=== PATIENT | male | born 1990 | race Caucasian/White ===

== ENCOUNTER 2018-11-21 23:50 | Emergency (ER) | payer OTHER ==
[~2018-11-21] VITALS: Ht 172.7 cm; Wt 124.7 kg
[2018-11-21 23:50] VITALS: BP 129/98
--- NOTE | 2018-11-21 23:53 | NUR ---
TO LOBBY A/W BED AMBULATORY
--- NOTE | 2018-11-22 00:10 | NUR ---
PT AMBULATED TO BED #2
[2018-11-22] MEDS ORDERED: AMOXIL/CLAVULANATE 875/125 MG 1 TAB PO ONE (01:40)
[2018-11-22] MEDS ORDERED: AMOXIL/CLAVULANATE 875/125 MG 1 TAB ONE (02:05)
[2018-11-22 02:25] VITALS: BP 126/73
== END 2018-11-22 02:25 | disposition home or self-care (01) ==
LOC: MED 23:50
DX: J02.0 Streptococcal pharyngitis (principal); R59.0 Localized enlarged lymph nodes
CPT/HCPCS: 87081; 99283